=== PATIENT | female | born 1975 | race Caucasian/White ===

== ENCOUNTER 2016-11-08 23:32 | Emergency (ER) | payer BC ==
[2016-11-09 00:39] VITALS: BP 134/78
[2016-11-09] MEDS ORDERED: cefTRIAXone 1 GM in Sodium Chloride 0.9% 50 ML IV ONE (01:34)
[2016-11-09] MEDS ORDERED: Acetaminophen 325 MG Tab PO ONE (01:36)
--- NOTE | 2016-11-09 01:42 | EDM.PDOC ---
[id number]: LEFT SIDE PAIN/FEVER/DIZZY/BLOOD IN URINE Time Seen by Provider: 11/09/16 01:37 Source of Information: Reports: Patient, Family History Limitations: Reports: No Limitations - History of Present Illness INITIAL COMMENTS - FREE TEXT/NARRATIVE: pt arrived with a history of blood in the urine and rt flank pain. He did not have an episode of real severe pain. Onset: Today Duration: Hour(s): Location: Reports: Other ( rt flank pain. ) Quality: Reports: Sharp Associated Symptoms: Reports: Other ( rt flank pain. ) lower back Pain Score (Numeric/FACES): 3 - Related Data Allergies Allergy/AdvReac Type Severity Reaction Status Date / Time No Known Allergies Allergy Verified 11/09/16 00:43 Home Meds: Home Meds LORazepam [Ativan] 0.5 mg PO BEDTIME PRN 11/09/16 [History] Sertraline HCl [Zoloft] 100 mg PO BEDTIME 11/09/16 [History] Thyroid [Sod Thyroid] 120 mg PO DAILY 11/09/16 [History] Past Medical History Cardiovascular History: Reports: Other (See Below) Other Cardiovascular History: Palpatations with thyroid. 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: , Spontaneous Musculoskeletal History: Reports: Fracture, Other (See Below) Other Musculoskeletal History: foot Psychiatric History: Reports: Anxiety, Depression Endocrine/Metabolic History: Reports: Hypothyroidism - Infectious Disease History Infectious Disease History: Reports: Human Papilloma Virus (HPV) Social & Family History - Tobacco Use Smoking Status *Q: Current Every Day Smoker Years of Tobacco use: 26 Packs/Tins Daily: 0.5 Second Hand Smoke Exposure: Yes - Caffeine Use Caffeine Use: Reports: Coffee, Energy Drinks, Soda, Tea - Alcohol Use Days Per Week of Alcohol Use: 7 Number of Drinks Per Day: 3 Total Drinks Per Week: 21 - Recreational Drug Use Recreational Drug Use: No Recreational Drug Type: Reports: Marijuana/Hashish ED ROS GENERAL - Review of Systems Review Of Systems: See Below Constitutional: Reports: Fever, Chills, Malaise HEENT: Reports: No Symptoms Respiratory: Reports: No Symptoms Cardiovascular: Reports: No Symptoms Endocrine: Reports: No Symptoms GI/Abdominal: Reports: Abdominal Pain, Other (pain in rt flank area. ) : Reports: Frequency Musculoskeletal: Reports: No Symptoms Skin: Reports: No Symptoms ED EXAM, RENAL/ - Physical Exam Exam: See Below Text/Narrative:: pt arrived with pain in the rt flank area. she feels like there is blood in the urine. Exam Limited By: No Limitations General Appearance: Alert, Anxious, Mild Distress Ears: Normal TMs Nose: Normal Inspection Throat/Mouth: Normal Inspection Head: Atraumatic Neck: Normal Inspection Respiratory/Chest: No Respiratory Distress Cardiovascular: Regular Rate, Rhythm GI/Abdominal: Tender, Other (pt has rt flank tenderness. ) Rectal (Female) Exam: Deferred Back Exam: CVA Tenderness (R) Extremities: Normal Inspection Neurological: Alert, Oriented, Normal Cognition Course - Vital Signs Last Recorded V/S: Last Vital Signs Temp 38.0 C 11/09/16 02:21 Pulse 101 H 11/09/16 00:37 Resp 18 11/09/16 00:37 BP 134/78 11/09/16 00:37 Pulse Ox 96 11/09/16 00:37 - Orders/Labs/Meds Labs: Laboratory Tests 11/09/16 11/09/16 11/09/16 Range/Units 00:14 00:43 00:43 WBC 11.8 H (4.5-11.0) K/uL RBC 3.60 (3.30-5.50) M/uL Hgb 11.1 L (12.0-15.0) g/dL Hct 32.6 L (36.0-48.0) % MCV 91 (80-98) fL MCH 31 (27-31) pg MCHC 34 (32-36) % Plt Count 280 (150-400) K/uL Neut % (Auto) 76 H (36-66) % Lymph % (Auto) 12 L (24-44) % [place] % (Auto) 11 H (2-6) % Eos % (Auto) 0 L (2-4) % Baso % (Auto) 0 (0-1) % Sodium 135 L (140-148) mmol/L Potassium 3.9 (3.6-5.2) mmol/L Chloride 99 L (100-108) mmol/L Carbon Dioxide 27 (21-32) mmol/L Anion Gap 12.9 (5.0-14.0) mmol/L BUN 11 (7-18) mg/dL Creatinine 0.7 (0.6-1.0) mg/dL Est Cr Clr Drug Dosing 88.37 mL/min Estimated GFR (MDRD) > 60 (>60) Glucose 110 H (74-106) mg/dL Calcium 8.5 (8.5-10.1) mg/dL Total Bilirubin 0.4 (0.2-1.0) mg/dL AST 16 (15-37) U/L ALT 22 (12-78) U/L Alkaline Phosphatase 70 (46-116) U/L Total Protein 7.0 (6.4-8.2) g/dL Albumin 3.6 (3.4-5.0) g/dL Globulin 3.4 (2.3-3.5) g/dL Albumin/Globulin Ratio 1.1 L (1.2-2.2) Urine Color Yellow Urine Appearance Clear Urine pH 6.0 (4.5-8.0) Ur Specific [place] 1.010 (1.008-1.030) Urine Protein Negative (NEGATIVE) mg/dL Urine Glucose (UA) Normal (NEGATIVE) mg/dL Urine Ketones Negative (NEGATIVE) mg/dL Urine Occult Blood Large (NEGATIVE) Urine Nitrite Negative (NEGATIVE) Urine Bilirubin Negative (NEGATIVE) Urine Urobilinogen Normal (NORMAL) mg/dL Ur Leukocyte Esterase Small (NEGATIVE) Urine RBC 0-5 (0-5) Urine WBC 5-10 H (0-5) Ur Epithelial Cells Few Amorphous Sediment Not seen Urine Bacteria Few Urine Mucus Not seen Meds: Medications Discontinued Medications Generic Name Dose Route Start Last Admin Trade Name Freq PRN Reason Stop Dose Admin Acetaminophen 650 mg 11/09/16 01:36 11/09/16 02:07 Tylenol PO 11/09/16 01:37 650 mg NOW ONE Administration Sodium Chloride 1,000 mls @ 999 mls/hr 11/09/16 01:45 11/09/16 02:07 Normal Saline IV 999 mls/hr ASDIRECTED RALPH Administration Ceftriaxone Sodium 1 gm/ 50 mls @ 100 mls/hr 11/09/16 01:34 11/09/16 02:10 Sodium Chloride IV 11/09/16 02:03 100 mls/hr ONETIME ONE Administration - Re-Assessments/Exams Free Text/Narrative Re-Assessment/Exam: 11/09/16 03:12 cat scan show edema around the rt kiney like a pyleonepits 11/10/16 08:46 pt was given 2 liters of fluid and 1 gm of rocephen, Departure - Departure Time of Disposition: 03:14 Disposition: Home, Self-Care 01 Condition: Good Clinical Impression: Pyelonephritis - Discharge Information Instructions: Pyelonephritis, Adult, [id number] Referrals: PCP,None [Primary Care Provider] - Forms: ED Department Discharge Care Plan Goals: push fluids, cipro 500mg bid, tylenol for fever.
[2016-11-09] MEDS ORDERED: Sodium Chloride 0.9% 1,000 ML IV SCH (01:45)
== END 2016-11-09 03:35 | disposition home or self-care (01) ==
LOC: JP.ED 23:32
DX: N12 Tubulo-interstitial nephritis, not specified as acute or chronic (principal); F41.9 Anxiety disorder, unspecified; F32.9 Major depressive disorder, single episode, unspecified; E03.9 Hypothyroidism, unspecified; F17.210 Nicotine dependence, cigarettes, uncomplicated; Z79.899 Other long term (current) drug therapy
CPT/HCPCS: 36415; 74176; 80053; 81001; 85025; 87040; 87086; 87088; 87186; 96361; 96365; 99284; A9270; J0696; J7040; J7050